=== PATIENT | female | born 1975 | race Caucasian/White ===

== ENCOUNTER 2017-03-27 07:19 | Emergency (ER) | payer OTHER ==
[2017-03-27 07:42] VITALS: BP 111/73
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
== END 2017-03-27 09:13 | disposition home or self-care (01) ==
LOC: UCEAST 07:19
DX: S20.20XA Contusion of thorax, unspecified, initial encounter (principal); X58.XXXA Exposure to other specified factors, initial encounter; Y93.89 Activity, other specified; Y92.9 Unspecified place or not applicable; F17.210 Nicotine dependence, cigarettes, uncomplicated
CPT/HCPCS: 99211; G0463

== ENCOUNTER 2018-03-01 10:57 | Emergency (ER) | payer SELFPAY ==
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
[2018-03-01] MEDS ORDERED: Ibuprofen ADULT LIQ* 600 MG/30 ML UDC PO ONE (11:16)
[2018-03-01] MEDS ORDERED: Ibuprofen PED LIQ 100 MG/5 ML UDC ONE (11:46)
[2018-03-01] MEDS ORDERED: Ibuprofen PED LIQ 100 MG/5 ML UDC PO ONE (11:52)
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
[2018-03-01 14:35] VITALS: BP 97/69
== END 2018-03-01 14:33 | disposition home or self-care (01) ==
LOC: ED 10:57
DX: R51 Headache (principal); S00.511A Abrasion of lip, initial encounter; F17.210 Nicotine dependence, cigarettes, uncomplicated; Y92.9 Unspecified place or not applicable; V49.9XXA Car occupant (driver) (passenger) injured in unspecified traffic accident, initial encounter
CPT/HCPCS: 70360; 70450; 72125; 72128; 72131; 99282; A9270-GY

== ENCOUNTER 2018-04-23 16:29 | Emergency (ER) | payer OTHER ==
[2018-04-23 17:02] VITALS: BP 103/62
--- NOTE | 2018-04-23 17:49 | UC ---
Lower Extremity/Ankle HPI - HPI Summary HPI Summary: Patient states has progressive pain that started in her right lateral hip that is now going down her leg. Patient states pain is worse with walking and direct palpation. Patient states she has not applied any ice or heat. No trauma or fall. Patient states the pain causes her to limp. Patient has not taken lsiu-are-vftoner medication. Patient denies paresthesias to her knee or foot. Patient denies color changes. Patient denies trauma. No history of similar but states she does have a history of "arthritis" The patient's medications reviewed this visit. - History of Current Complaint Chief Complaint: UCLowerExtremity Stated Complaint: PAIN DOWN FROM RIGHT HIP TO ANKLE Time Seen by Provider: 04/23/18 17:47 Hx Obtained From: Patient Hx Last Menstrual Period: 04/10/18 Onset/Duration: Gradual Onset Pain Intensity: 3 - Allergies/Home Medications Allergies/Adverse Reactions: Allergies Allergy/AdvReac Type Severity Reaction Status Date / Time No Known Allergies Allergy Verified 09/13/12 08:27 PMH/Surg Hx/FS Hx/Imm Hx Previously Healthy: Yes - Surgical History Surgical History: None Surgery Procedure, Year, and Place: Brain surgery(CRANIOTOMY) 2012 at [facility],. tubal ligation - Family History Known Family History: Positive: Hypertension - Social History Occupation: Unemployed Lives: With Family Alcohol Use: None Substance Use Type: None Smoking Status (MU): Heavy Every Day Tobacco Smoker Amount Used/How Often: 1/4 PPD Review of Systems Constitutional: Negative Musculoskeletal: Other: - right hip All Other Systems Reviewed And Are Negative: Yes Physical Exam - Summary Physical Exam Summary: Vital Signs Reviewed: Yes A+Ox3, no distress Eyes: Conjunctiva Clear, KATHRYN. EOM intact and full ENT: Hearing grossly normal TM x 2 clear, mmoist, uvula midline, no exudate, no erythema Neck: Positive: Supple Respiratory: Positive: No respiratory distress, No accessory muscle use + CTA throughout no w/r Cardiovascular: RRR nl s1, s2 no m/r CBT <2 sec Musculoskeletal + SLE, + flex/ext knee, ankle + TTP lateral aspect right hip with direct palp. Pain increases with SLE and internal rotation Neurological: Positive: Alert, + sensation throughout 2+ patellar, 2+ achilles without clonus Psychological: Positive: Normal Response To Family Skin: Positive: no rash, no ecchymosis Triage Information Reviewed: Yes Vital Signs: Initial Vital Signs Temp 97.0 F 04/23/18 16:56 Pulse 69 04/23/18 16:56 Resp 16 04/23/18 16:56 BP 103/62 04/23/18 16:56 Pulse Ox 99 04/23/18 16:56 Diagnostics - Radiology No standard instances Radiology Interpretation Completed By: Radiologist - Patient Name: KARIME ROQUE Medical Record#: [id number] Ordering Physician: Karen Holly MD Acct.#: [id number] : 1975 Age: 42 Sex: F Location: [facility] Exam Date: 04/23/181803 ADM Status: REG ER Order Information: HIP RIGHT 2 VIEWS AND PELVIS Accession Number: [id number] CPT: 05837 HISTORY: Right hip lateral pain, bursitis COMPARISONS: None VIEWS: 3, Frontal view of the pelvis with frontal and frog-leg views of the right hip FINDINGS: BONE DENSITY: Normal. BONES: There is no displaced fracture. JOINTS: There is no arthropathy. ALIGNMENT: There is no dislocation. SOFT TISSUES: Unremarkable. OTHER FINDINGS : None. IMPRESSION: NO ACUTE OSSEOUS INJURY. IF SYMPTOMS PERSIST, RECOMMEND REPEAT IMAGING. < Electronically signed by Axel Adame MD in OV> 04/23/181829 Dictated By: Axel Adame MD Dictated Date/Time: 04/23/181829 Transcribed Date/ Time: 04/23/181829 Copy to: CC:Karen Holly MD; Ana Carney NP Imaging - [facility] Imaging - [facility] Imaging - [facility] [address] [place] [address] ph [phone]) ph [phone]) ph ([phone]) 1 of 1 Lower Extremity Course/Dx - Course Course Of Treatment: pt with discomfort with direct palp over right lateral ankle Pain extends lateral aspect of leg. CSM intact. suspect burisitis. will imaging. motrin/apap. stretch. rest. pt referral - Differential Dx/Diagnosis Provider Diagnoses: right hip pain Discharge - Sign-Out/Discharge Documenting (check all that apply): Discharge/Admit/Transfer - Discharge Plan Condition: Stable Disposition: HOME Prescriptions: PredNISOLone LIQ 5MG/ML* 30 mg PO DAILY #10 [facility] [place] Patient Education Materials: Hip Bursitis (ED) Referrals: Ana Carney [Primary Care Provider] - Additional Instructions: - Take prednisone daily as prescribed - Okay to take Tylenol 650mg every 6 hours for pain. Take with food - apply heat to your right hip - slow, gentle stretching exercises - contact your doctor tomorrow to scheduled a follow-up appointment - rest as much as possible Contact your doctor or go to the emergency department for uncontrolled pain, fever, leg weakness, reddness or ANY other questions or concerns - Billing Disposition and Condition Condition: STABLE Disposition: HOME
--- NOTE | 2018-04-23 18:34 | RAD ---
HISTORY: Right hip lateral pain, bursitis COMPARISONS: None VIEWS: 3, Frontal view of the pelvis with frontal and frog-leg views of the right hip FINDINGS: BONE DENSITY: Normal. BONES: There is no displaced fracture. JOINTS: There is no arthropathy. ALIGNMENT: There is no dislocation. SOFT TISSUES: Unremarkable. OTHER FINDINGS: None. IMPRESSION: NO ACUTE OSSEOUS INJURY. IF SYMPTOMS PERSIST, RECOMMEND REPEAT IMAGING.
== END 2018-04-23 19:15 | disposition home or self-care (01) ==
LOC: UCEAST 16:29
DX: M25.551 Pain in right hip (principal); F17.210 Nicotine dependence, cigarettes, uncomplicated
CPT/HCPCS: 99212; G0463

== ENCOUNTER 2018-11-23 18:23 | Emergency (ER) | payer OTHER ==
[2018-11-23 18:34] VITALS: BP 111/71
--- NOTE | 2018-11-23 18:57 | UC ---
Throat Pain/Nasal Jaden HPI - HPI Summary HPI Summary: 43-year-old woman comes in with a chief complaint of cough chest congestion and fevers. Been having upper respiratory tract infection symptoms for approximately one week. Initially had more of a runny nose and sinus pressure now it's moved down into her chest. sHe is a smoker and she is producing sputum. She does not take any medications. - History of Current Complaint Chief Complaint: UCGeneralIllness Stated Complaint: URI Time Seen by Provider: 11/23/18 18:40 Hx Last Menstrual Period: [id number] Pain Intensity: 3 - Allergies/Home Medications Allergies/Adverse Reactions: Allergies Allergy/AdvReac Type Severity Reaction Status Date / Time No Known Allergies Allergy Verified 11/23/18 18:34 Home Medications: Home Medications Phenol/Glycerin [Chloraseptic Max Sore Thr] 1 spr MT Q6H 11/23/18 [History Confirmed 11/23/18] [id number] LIQ* [Robitussin*] 5 mg PO Q4H PRN 11/23/18 [History Confirmed 11/23] PMH/Surg Hx/FS Hx/Imm Hx Previously Healthy: Yes - Surgical History Surgical History: Yes Surgery Procedure, Year, and Place: Brain surgery(CRANIOTOMY) 2012 at [facility],. tubal ligation - Family History Known Family History: Positive: Hypertension - Social History Alcohol Use: None Substance Use Type: None Smoking Status (MU): Light Every Day Tobacco Smoker Amount Used/How Often: 1/ PPD Review of Systems All Other Systems Reviewed And Are Negative: Yes Constitutional: Positive: Fever Skin: Positive: Negative Eyes: Positive: Negative ENT: Positive: Sore Throat, Nasal Discharge, Sinus Congestion Respiratory: Positive: Cough, Other - see hpi Cardiovascular: Positive: Negative Gastrointestinal: Positive: Negative Motor: Positive: Negative Neurovascular: Positive: Negative Musculoskeletal: Positive: Negative Neurological: Positive: Negative Psychological: Positive: Negative Is Patient Immunocompromised?: No Physical Exam Triage Information Reviewed: Yes Appearance: No Pain Distress, Well-Nourished, Ill-Appearing - mild Vital Signs: Initial Vital Signs Temp 99.4 F 11/23/18 18:30 Pulse 73 11/23/18 18:30 Resp 16 11/23/18 18:30 BP 111/71 11/23/18 18:30 Pulse Ox 100 11/23/18 18:30 Vital Signs Reviewed: Yes Eye Exam: Normal Eyes: Positive: Conjunctiva Clear ENT: Positive: Nasal congestion, Nasal drainage, TMs normal Neck exam: Normal Neck: Positive: Supple Respiratory: Positive: Lungs clear, Normal breath sounds, No respiratory distress Cardiovascular: Positive: RRR Musculoskeletal Exam: Normal Musculoskeletal: Positive: Strength Intact, ROM Intact Neurological Exam: Normal Neurological: Positive: Alert, Muscle Tone Normal Psychological Exam: Normal Psychological: Positive: Normal Response To Family, Age Appropriate Behavior Skin Exam: Normal Throat Pain/Nasal Course/Dx - Course Course Of Treatment: DISCUSSED VIRAL VERSES BACTERIAL INFECTION AND THE ROLE OF ANTIBIOTICS. THE PATIENT WISHES TO BE ON ANTIBIOTIC AT THIS TIME. - Differential Dx/Diagnosis Provider Diagnosis: Bronchitis Discharge - Sign-Out/Discharge Documenting (check all that apply): Patient Departure All imaging exams completed and their final reports reviewed: No Studies - Discharge Plan Condition: Stable Disposition: HOME Prescriptions: Azithromycin 200/5 SUSP(NF) [Zithromax 200 mg/5 ml SUSP(NF)] 0 mg PO DAILY # 37.5 ml Patient Education Materials: Acute Bronchitis (ED) Referrals: Ana Carney [Primary Care Provider] - Additional Instructions: FOLLOW UP WITH YOUR DOCTOR IF NOT COMPLETELY IMPROVED. GET RECHECKED FOR ANY WORSENING OF YOUR CONDITION OR QUESTIONS OR CONCERNS. - Billing Disposition and Condition Condition: STABLE Disposition: Home
== END 2018-11-23 19:05 | disposition home or self-care (01) ==
LOC: UCEAST 18:23
DX: J40 Bronchitis, not specified as acute or chronic (principal); F17.210 Nicotine dependence, cigarettes, uncomplicated
CPT/HCPCS: 99212; G0463

== ENCOUNTER 2018-12-17 08:58 | Emergency (ER) | payer OTHER ==
[2018-12-17 09:16] VITALS: BP 126/81
--- NOTE | 2018-12-17 09:38 | UC ---
Respiratory Complaint HPI - History of Current Complaint Chief Complaint: UCChestPain Stated Complaint: RIB PAIN Time Seen by Provider: 12/17/18 09:35 Hx Last Menstrual Period: menapause Pain Intensity: 8 - Allergies/Home Medications Allergies/Adverse Reactions: Allergies Allergy/AdvReac Type Severity Reaction Status Date / Time No Known Allergies Allergy Verified 11/23/18 18:34 PMH/Surg Hx/FS Hx/Imm Hx - Surgical History Surgical History: Yes Surgery Procedure, Year, and Place: Brain surgery(CRANIOTOMY) [address] [facility]. tubal ligation - Family History Known Family History: Positive: Hypertension - Social History Alcohol Use: None Substance Use Type: None Smoking Status (MU): Light Every Day Tobacco Smoker Amount Used/How Often: 1/4 PPD Physical Exam Vital Signs: Initial Vital Signs Temp 99.3 F 12/17/18 09:07 Pulse 67 12/17/18 09:07 Resp 18 12/17/18 09:07 BP 126/81 12/17/18 09:07 Pulse Ox 100 12/17/18 09:07 Diagnostic Evaluation - Laboratory O2 Sat by Pulse Oximetry: 100 Discharge - Discharge Plan Referrals: Ana Carney [Primary Care Provider] -
--- NOTE | 2018-12-17 09:40 | UC ---
Respiratory Complaint HPI - HPI Summary HPI Summary: 43 yo female presents with LEFT rib pain for the last few days. She tells me that around 11/23 she was treated for bronchitis/PNA and has been doing a lot of coughing since that time. Has been coughing so much lately that she is concerned she may have broken a rib in her left side. Hurts to take deep breaths and with touch. She is still smoking daily. Denies fever, chills, SOB, cardiac chest pain, n/v. - History of Current Complaint Chief Complaint: UCChestPain Stated Complaint: RIB PAIN Time Seen by Provider: 12/17/18 09:35 Hx Obtained From: Patient Hx Last Menstrual Period: menapause Onset/Duration: Gradual Onset Severity Initially: Moderate Severity Currently: Severe Pain Intensity: 8 Pain Scale Used: 0-10 Numeric Character: Cough: Nonproductive - Allergies/Home Medications Allergies/Adverse Reactions: Allergies Allergy/AdvReac Type Severity Reaction Status Date / Time No Known Allergies Allergy Verified 11/23/18 18:34 PMH/Surg Hx/FS Hx/Imm Hx - Additional Past Medical History Additional PMH: None - Surgical History Surgical History: Yes Surgery Procedure, Year, and Place: Brain surgery(CRANIOTOMY) 2012 at [facility],. tubal ligation - Family History Known Family History: Positive: Hypertension - Social History Occupation: Employed Full-time Lives: With Family Alcohol Use: None Substance Use Type: None Smoking Status (MU): Light Every Day Tobacco Smoker Amount Used/How Often: 1/4 PPD Review of Systems All Other Systems Reviewed And Are Negative: Yes Constitutional: Positive: Negative Skin: Positive: Negative Eyes: Positive: Negative ENT: Positive: Negative Respiratory: Positive: Cough Cardiovascular: Positive: Negative Gastrointestinal: Positive: Negative Musculoskeletal: Positive: Other: - left rib pain Neurological: Positive: Negative Psychological: Positive: Negative Physical Exam - Summary Physical Exam Summary: GENERAL: NAD. WDWN. No pain distress. SKIN: No rashes, sores, lesions, or open wounds. HEENT: Head: AT/NC NECK: Supple. Nontender. No lymphadenopathy. CHEST: Distant breath sounds throughout. No r/r. No accessory muscle use. Breathing comfortably and in no distress. CV: RRR. Without m/r/g. Pulses intact. Cap refill <2seconds MSK: TTP overlying midaxillary left rib ~7th-8th. Pain worse with left arm movement and deep breaths. NEURO: Alert. PSYCH: Age appropriate behavior. Triage Information Reviewed: Yes Vital Signs: Initial Vital Signs Temp 99.3 F 12/17/18 09:07 Pulse 67 12/17/18 09:07 Resp 18 12/17/18 09:07 BP 126/81 12/17/18 09:07 Pulse Ox 100 12/17/18 09:07 Vital Signs Reviewed: Yes UC Diagnostic Evaluation - Laboratory O2 Sat by Pulse Oximetry: 100 Respiratory Course/Dx - Course Course Of Treatment: CXR: IMPRESSION: 1. SCOLIOSIS. 2. NO DISPLACED RIB FRACTURE OR PNEUMOTHORAX. IF THERE IS PERSISTENT CLINICAL CONCERN FOR. OSSEOUS PATHOLOGY OF THE RIBS, BONE SCANNING MAY BE MORE SENSITIVE. Suspect muscle strain due to coughing. Pt declined cough or pain medication at this time. Advised to apply heat/ice to the area and f/u with PCP if symptoms do not improve. - Differential Dx/Diagnosis Provider Diagnosis: Intercostal muscle strain Discharge - Sign-Out/Discharge Documenting (check all that apply): Patient Departure All imaging exams completed and their final reports reviewed: Yes - Discharge Plan Condition: Stable Disposition: HOME Patient Education Materials: Muscle Strain (DC) Referrals: Ana Carney [Primary Care Provider] - Additional Instructions: If you develop a fever, shortness of breath, chest pain, new or worsening symptoms - please call your PCP or go to the ED. - Billing Disposition and Condition Condition: STABLE Disposition: Home - Attestation Statements Provider Attestation: I was available for consult. This patient was seen by the EMM[facility]. The patient was not presented to, seen by, or examined by me. -Brett
== END 2018-12-17 10:20 | disposition home or self-care (01) ==
LOC: UCEAST 08:58
DX: S29.011A Strain of muscle and tendon of front wall of thorax, initial encounter (principal); X58.XXXA Exposure to other specified factors, initial encounter; Y92.9 Unspecified place or not applicable; M41.9 Scoliosis, unspecified; F17.200 Nicotine dependence, unspecified, uncomplicated
CPT/HCPCS: 99211; G0463

== ENCOUNTER 2019-03-14 09:12 | Emergency (ER) | payer OTHER ==
[2019-03-14 09:26] VITALS: BP 98/70
--- NOTE | 2019-03-14 09:42 | UC ---
Respiratory Complaint HPI - HPI Summary HPI Summary: 43-year-old woman comes in with a chief complaint of 3 days of upper respiratory tract infection symptoms. She's got a cough chest congestion. She is a smoker. Prescription pain in the left side of the chest when she coughs. Got some runny nose minimal sore throat. Feels like her right ear is clogged up. Tried to take some [id number] medications but then she threw them up. No complaint of abdominal pain. Fever yesterday. - History of Current Complaint Chief Complaint: UCRespiratory Stated Complaint: COUGH/SORE THROAT Time Seen by Provider: 03/14/19 09:30 Hx Last Menstrual Period: menapause Pain Intensity: 4 - Allergies/Home Medications Allergies/Adverse Reactions: Allergies Allergy/AdvReac Type Severity Reaction Status Date / Time No Known Allergies Allergy Verified 03/14/19 09:26 PMH/Surg Hx/FS Hx/Imm Hx Previously Healthy: Yes - Surgical History Surgical History: Yes Surgery Procedure, Year, and Place: Brain surgery(CRANIOTOMY) 2012 at [facility]. tubal ligation - Family History Known Family History: Positive: Hypertension - Social History Alcohol Use: None Substance Use Type: None Smoking Status (MU): Heavy Every Day Tobacco Smoker Amount Used/How Often: 1/ PPD Review of Systems All Other Systems Reviewed And Are Negative: Yes Constitutional: Positive: Fever Skin: Positive: Negative Eyes: Positive: Negative ENT: Positive: Sore Throat, Ear Ache, Nasal Discharge, Sinus Congestion Respiratory: Positive: Cough, Other - SEE HPI Cardiovascular: Positive: Chest Pain Gastrointestinal: Positive: Vomiting Motor: Positive: Negative Neurovascular: Positive: Negative Musculoskeletal: Positive: Negative Neurological: Positive: Negative Psychological: Positive: Negative Is Patient Immunocompromised?: No Physical Exam Triage Information Reviewed: Yes Appearance: No Pain Distress, Well-Nourished, Ill-Appearing - MILD Vital Signs: Initial Vital Signs Temp 99.7 F 03/14/19 09:21 Pulse 69 03/14/19 09:21 Resp 18 03/14/19 09:21 BP 98/70 03/14/19 09:21 Pulse Ox 97 03/14/19 09:21 Vital Signs Reviewed: Yes Eye Exam: Normal ENT: Positive: Pharyngeal erythema, Nasal congestion, Nasal drainage, TM dull - RT Neck: Positive: Supple Respiratory: Positive: Lungs clear, Normal breath sounds, No respiratory distress Cardiovascular: Positive: RRR Musculoskeletal Exam: Normal Musculoskeletal: Positive: Strength Intact, ROM Intact Neurological Exam: Normal Neurological: Positive: Alert, Muscle Tone Normal Psychological Exam: Normal Psychological: Positive: Age Appropriate Behavior Skin Exam: Normal Respiratory Course/Dx - Course Course Of Treatment: DISCUSSED VIRAL VERSES BACTERIAL INFECTION AND THE ROLE OF ANTIBIOTICS. THE PATIENT WISHES TO BE ON ANTIBIOTICS AT THIS TIME. - Differential Dx/Diagnosis Provider Diagnosis: Bronchitis, Vomiting Discharge - Sign-Out/Discharge Documenting (check all that apply): Patient Departure All imaging exams completed and their final reports reviewed: No Studies - Discharge Plan Condition: Stable Disposition: HOME Prescriptions: Azithromycin 200/5 SUSP(NF) [Zithromax 200 mg/5 ml SUSP(NF)] 0 mg PO DAILY # 37.5 ml Ondansetron ODT TAB* [Zofran 4 MG Odt TAB*] 4 mg PO Q6H PRN #10 tab.odt PRN Reason: Nausea Patient Education Materials: Acute Bronchitis (ED), Acute Nausea and Vomiting ( ED) Forms: *Work Release Referrals: Ana Carney [Primary Care Provider] - Additional Instructions: FOLLOW UP WITH YOUR DOCTOR IF NOT COMPLETELY IMPROVED. GET REEVALUATED SOONER IF YOUR CONDITION WORSENS OR ANY QUESTIONS OR CONCERNS. - Billing Disposition and Condition Condition: STABLE Disposition: Home
== END 2019-03-14 09:48 | disposition home or self-care (01) ==
LOC: UCEAST 09:12
DX: J40 Bronchitis, not specified as acute or chronic (principal); R11.10 Vomiting, unspecified; H93.8X1 Other specified disorders of right ear; F17.200 Nicotine dependence, unspecified, uncomplicated
CPT/HCPCS: 99212; G0463

== ENCOUNTER 2019-03-17 13:04 | Emergency (ER) | payer OTHER ==
[2019-03-17 13:16] VITALS: BP 100/72
--- NOTE | 2019-03-17 13:55 | UC ---
Respiratory Complaint HPI - HPI Summary HPI Summary: 43 yo female presents with continued dry cough. She tells me that she was here a few days ago and was dx'd with bronchitis and was prescribed azithromycin. She is still taking this, but says her cough is keeping her up at night and does not feel well enough to return to work. She is still smoking daily. Denies fever, chills, sinus symptoms, sore throat, SOB, chest pain. She is also requesting an x-ray today. - History of Current Complaint Chief Complaint: UCRespiratory Stated Complaint: COUGH CONGESTION Time Seen by Provider: 03/17/19 13:55 Hx Obtained From: Patient Hx Last Menstrual Period: February 07, 2019 Onset/Duration: Gradual Onset Severity Initially: Mild Severity Currently: Mild Pain Intensity: 4 Pain Scale Used: 0-10 Numeric Character: Cough: Nonproductive - Allergies/Home Medications Allergies/Adverse Reactions: Allergies Allergy/AdvReac Type Severity Reaction Status Date / Time No Known Allergies Allergy Verified 03/17/19 13:16 PMH/Surg Hx/FS Hx/Imm Hx - Additional Past Medical History Additional PMH: None Respiratory History: COPD, Asthma - Surgical History Surgical History: Yes Surgery Procedure, Year, and Place: Brain surgery(CRANIOTOMY) 2012 at [facility],. Tubal ligation - Family History Known Family History: Positive: Hypertension - Social History Lives: With Family Alcohol Use: None Substance Use Type: None Smoking Status (MU): Heavy Every Day Tobacco Smoker Amount Used/How Often: 1/4 PPD Review of Systems All Other Systems Reviewed And Are Negative: Yes Constitutional: Positive: Negative Skin: Positive: Negative Eyes: Positive: Negative ENT: Positive: Negative Respiratory: Positive: Cough Cardiovascular: Positive: Negative Gastrointestinal: Positive: Negative Neurovascular: Positive: Negative Neurological: Positive: Negative Psychological: Positive: Negative Physical Exam - Summary Physical Exam Summary: GENERAL: NAD. WDWN. No pain distress. SKIN: No rashes, sores, lesions, or open wounds. HEENT: Head: AT/NC Eyes: Conjunctiva clear without inflammation or discharge. Ears: Hearing grossly normal. TMs intact, no bulging, erythema, or edema. Nose: Nasal mucosa pink and moist. NTTP maxillary and frontal sinus. Throat: Posterior oropharynx without exudates, erythema, or tonsillar enlargement. Uvula midline. NECK: Supple. Nontender. No lymphadenopathy. CHEST: Mild wheezing throughout. No r/r. No accessory muscle use. Breathing comfortably and in no distress. CV: RRR. Without m/r/g. Pulses intact. Cap refill <2seconds NEURO: Alert. PSYCH: Age appropriate behavior. Triage Information Reviewed: Yes Vital Signs: Initial Vital Signs Temp 98.2 F 03/17/19 13:13 Pulse 76 03/17/19 13:13 Resp 18 03/17/19 13:13 BP 100/72 03/17/19 13:13 Pulse Ox 100 03/17/19 13:13 Vital Signs Reviewed: Yes Respiratory Course/Dx - Course Course Of Treatment: CXR: negative. Agree with previous dx and suspect bronchitis vs COPD exacerbation. Will have her continue azithromycin and will rx for prednisolone and delsym as pt can only tolerate liquid formulations of medications. She has an albuterol inhaler at home and advised to her continue using this. - Differential Dx/Diagnosis Provider Diagnosis: Bronchitis Discharge - Sign-Out/Discharge Documenting (check all that apply): Patient Departure All imaging exams completed and their final reports reviewed: Yes - Discharge Plan Condition: Stable Disposition: HOME Prescriptions: Dextromethorphan Polistirex [Delsym] 30 mg PO BID PRN #1 bottle PRN Reason: Cough PrednisoLONE 3 MG/ML ORAL.SOLU [PrednisoLONE 3 MG/ML 5 ml ORAL.SOLUTION*] 13 ml PO DAILY 5 Days #65 ml Patient Education Materials: Acute Bronchitis (ED) Forms: *Work Release Referrals: Ana Carney [Primary Care Provider] - Additional Instructions: If you develop a fever, shortness of breath, chest pain, new or worsening symptoms - please call your PCP or go to the ED. Your chest x-ray was normal 1) Continue your antibiotic and start the prednisolone in addition - Billing Disposition and Condition Condition: STABLE Disposition: Home
== END 2019-03-17 14:57 | disposition home or self-care (01) ==
LOC: UCEAST 13:04
DX: J40 Bronchitis, not specified as acute or chronic (principal); J44.9 Chronic obstructive pulmonary disease, unspecified; F17.200 Nicotine dependence, unspecified, uncomplicated
CPT/HCPCS: 71046; 99212; G0463

== ENCOUNTER 2020-01-11 14:15 | Emergency (ER) | payer SELFPAY ==
[2020-01-11 14:56] VITALS: BP 113/66
--- NOTE | 2020-01-11 15:23 | UC ---
General HPI - HPI Summary HPI Summary: ONSET OF LEFT ARM TINGLING FROM SHOULDER TO FINGERTIPS THIS MORNING 10 AM. STATES SHE FEELS SOME DISCOMFORT IN BOTH HER SHOULDERS AND HAS BEEN FEELING NAUSEATED SINCE THE ONSET OF THE SYMPTOMS. DENIES CHEST PAIN, SHORTNESS OF BREATH, SWEATS. PATIENT IS A HEAVY SMOKER AND REPORTS MULTIPLE FAMILY MEMBERS WITH HEART DISEASE IN THEIR 40S. - History of Current Complaint Chief Complaint: UCUpperExtremity Stated Complaint: TINGLEING IN LT ARM Time Seen by Provider: 01/11/20 15:06 Hx Obtained From: Patient Hx Last Menstrual Period: post Onset/Duration: Sudden Onset, Lasting Hours, Still Present Timing: Constant Onset Severity: Moderate Current Severity: Moderate Pain Intensity: 7 Associated Signs & Symptoms: Positive: Nausea. Negative: Back Pain, Chest Pain , Dizziness, Diaphoresis, Fever, Headache, SOB - Allergy/Home Medications Allergies/Adverse Reactions: Allergies Allergy/AdvReac Type Severity Reaction Status Date / Time No Known Allergies Allergy Verified 01/11/20 14:56 Home Medications: Home Medications NK [No Home Medications Reported] 01/11/20 [History Confirmed 01/11/20] PMH/Surg Hx/FS Hx/Imm Hx Previously Healthy: Yes - Surgical History Surgical History: Yes Surgery Procedure, Year, and Place: Brain surgery(CRANIOTOMY) 2012 at [facility]. Tubal ligation - Family History Known Family History: Positive: Cardiac Disease, Hypertension - Social History Alcohol Use: None Substance Use Type: None Smoking Status (MU): Heavy Every Day Tobacco Smoker Amount Used/How Often: 1/4 PPD Household Exposure Type: Cigarettes Review of Systems All Other Systems Reviewed And Are Negative: Yes Constitutional: Positive: Negative ENT: Positive: Negative Respiratory: Positive: Negative, Shortness Of Breath Gastrointestinal: Positive: Nausea Neurological/Mental Status: Positive: Paresthesia - LEFT ARM Physical Exam Triage Information Reviewed: Yes Appearance: Well-Appearing, No Pain Distress, Thin - APPEARS OLDER THAN STATED AGE Vital Signs: Initial Vital Signs Temp 98.6 F 01/11/20 14:51 Pulse 70 01/11/20 14:51 Resp 15 01/11/20 14:51 BP 113/66 01/11/20 14:51 Pulse Ox 99 01/11/20 14:51 Vital Signs Reviewed: Yes Eyes: Positive: Conjunctiva Clear ENT: Positive: Hearing grossly normal Neck: Positive: Supple Respiratory Exam: Normal Cardiovascular Exam: Normal Abdomen Description: Positive: Soft Musculoskeletal: Positive: No Edema Neurological: Positive: Alert, Other: - POSITIVE TINELS LEFT WRIST Psychological: Positive: Age Appropriate Behavior Skin: Negative: Rashes Diagnostics - EKG Cardiac Rate: NL - 64BPM Cardiac Rhythm: Sinus: Normal Ectopy: None ST Segment: Normal Course/Dx - Course Course Of Treatment: PATIENT PRESENTS WITH SUDDEN ONSET OF LEFT ARM TINGLING, BILATERAL SHOULDER PAIN AND NAUSEA AT 10 AM THIS MORNING WHILE AT WORK. PATIENT LIFTS AND MOVES HEAVY POTS AND PANS FOR WORK. THERE MAY BE AN ELEMENT OF CARPAL TUNNEL BUT GIVEN HER WHOLE PRESENTATION I FEEL SHE REQUIRES FURTHER EVALUATION IN THE ER TO RULE OUT ANY UNDERLYING CARDIAC CONDITION. EKG GROSSLY UNREMARKABLE. PATIENT IS A HEAVY SMOKER AND HAS A STRONG FAMILY HISTORY OF HEART DISEASE. - Diagnoses Provider Diagnosis: Paresthesia of left arm Discharge ED - Sign-Out/Discharge Documenting (check all that apply): Patient Departure All imaging exams completed and their final reports reviewed: No Studies - Discharge Plan Condition: Stable Disposition: TRANS HIGHER LVL OF CARE FAC Patient Education Materials: Paresthesia (ED) Referrals: Ana Carney [Primary Care Provider] - If Needed Additional Instructions: GIVEN YOUR LEFT ARM PARESTHESIAS, SHOULDER PAIN AND NAUSEA I FEEL YOU REQUIRE FURTHER EVALUATION AND A HIGHER LEVEL OF SERVICE THAN WHAT IS AVAILABLE IN THE URGENT CARE. GO DIRECTLY TO THE [facility] ER FROM HERE FOR FURTHER EVALUATION. YOU HAVE DECLINED TRANSFER TO THE ER BY AMBULANCE. BE ADVISED THAT BY NOT TRAVELING IN A MONITORED SETTING YOU COULD BE RISKING WORSENING OF YOUR CONDITION THAT COULD POSE A THREAT TO YOUR LIFE, HEALTH AND MEDICAL SAFETY. - Billing Disposition and Condition Condition: STABLE Disposition: Trans Higher Lvl of Care Fac
== END 2020-01-11 15:41 | disposition short-term general hospital (02) ==
LOC: UCEAST 14:15
DX: R20.2 Paresthesia of skin (principal); F17.210 Nicotine dependence, cigarettes, uncomplicated; R11.0 Nausea
CPT/HCPCS: 93005; 99213; G0463

== ENCOUNTER 2020-01-11 15:46 | Emergency (ER) | payer OTHER ==
[2020-01-11 17:14] LABS: ABS Basophils 0.1 10^3/ul (0-0.2); ABS Eosinophils 0.4 10^3/ul (0-0.6); ABS Lymphocytes 2.3 10^3/ul (1.0-4.8); ABS Monocytes 0.6 10^3/ul (0-0.8); ABS Neutrophils 4.8 10^3/ul (1.5-7.7); Eosinophil % 4.8 %; Hematocrit 39 % (35-47); Hemoglobin 13.6 g/dL (12.0-16.0); Lymphocyte % 28.4 %; Mean Corpuscular HGB Conc 35 g/dL (31-36); Mean Corpuscular Hemoglobin 32 pg (27-31); Mean Corpuscular Volume 92 fL (80-97); Mean Platelet Volume 8.2 fL (7.4-10.4); Nucleated Red Blood Cells % 0.1; Platelet Count 224 10^3/uL (150-450); Red Blood Count 4.26 10^6 /uL (3.70-4.87); Red Cell Distribution Width 13 % (10-15); White Blood Count 8.1 10^3/uL (3.5-10.8)
[2020-01-11] MEDS ORDERED: Ibuprofen ADULT LIQ* 600 MG/30 ML UDC PO ONE (17:40)
[2020-01-11 17:49] LABS: HCG Pregnancy < 0.60 mIU/mL
[2020-01-11 17:56] LABS: Albumin 4.3 g/dL (3.2-5.2); Anion Gap 7 mmol/L (2-11); CO2 Carbon Dioxide 24 mmol/L (22-32); Calcium 9.3 mg/dL (8.6-10.3); Chloride 107 mmol/L (101-111); Sodium 138 mmol/L (135-145)
[2020-01-11 18:02] LABS: ALT 7 U/L (7-52); AST 12 U/L (13-39); Albumin/Globulin Ratio 1.6 (1-3); Alkaline Phosphatase 54 U/L (34-104); BUN/Creatinine Ratio 15.5 (8-20); Blood Urea Nitrogen 13 mg/dL (6-24); EGFR African American 88.7 (>60); EGFR Non-African American 73.3 (>60); Globulin 2.7 g/dL (2-4); Glucose 95 mg/dL (70-100)
[2020-01-11 19:57] VITALS: BP 98/64
--- NOTE | 2020-01-11 20:04 | ED ---
HPI Chest Pain - HPI Summary HPI Summary: 44 y/o female presented to [facility] for shoulder and CP present since this morning. 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 She began experiencing CP in her left chest between 1500 and 1600 when en route to ED. Pt notes gas and mild nausea. CP lasted for several minutes, now resolved. She denies hx DVT/ PE. She has no cardiac hx or cardiac fhx. No recent stress test. No orthopnea or MAR. She is R handed but does use her L hand often at work. No - History of Current Complaint Chief Complaint: EDExtremityUpper Time Seen by Provider: 01/11/20 16:56 Hx Obtained From: Patient Hx Last Menstrual Period: post Onset/Duration: Started Hours Ago, Atraumatic, Resolved Timing: Lasting Hours Current Severity: None Pain Intensity: 0 Pain Scale Used: 0-10 Numeric Chest Pain Location: Left Anterior Aggravating Factor(s): Nothing Alleviating Factor(s): Nothing Associated Signs and Symptoms: Positive: Chest Pain, Numbness - left arm - Allergy/Home Medications Allergies/Adverse Reactions: Allergies Allergy/AdvReac Type Severity Reaction Status Date / Time No Known Allergies Allergy Verified 01/11/20 14:56 PMH/Surg Hx/FS Hx/Imm Hx Endocrine/Hematology History: Denies: Hx Diabetes, Hx Thyroid Disease Cardiovascular History: Denies: Hx Hypertension, Hx Pacemaker/ICD Respiratory History: Denies: Hx Asthma, Hx Chronic Obstructive Pulmonary Disease (COPD) GI History: Denies: Hx Ulcer History: Denies: Hx Renal Disease Sensory History: Denies: Hx Hearing Aid Neurological History: Reports: Other Neuro Impairments/Disorders - brain surg Psychiatric History: Denies: Hx Panic Disorder - Cancer History Cancer Type, 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 Tubal ligation Infectious Disease History: No Infectious Disease History: Reports: Hx of Known/Suspected MRSA Denies: Hx Clostridium Difficile, Hx Hepatitis, Hx Human Immunodeficiency Virus (HIV), Traveled Outside the [place] in Last 30 Days - Family History Known Family History: Positive: Cardiac Disease, Hypertension - Social History Alcohol Use: None Hx Substance Use: No Substance Use Type: Reports: None Hx Tobacco Use: Yes Smoking Status (MU): Light Every Day Tobacco Smoker Amount Used/How Often: 1/4 PPD Review of Systems Positive: Chest Pain Positive: Numbness - left arm All Other Systems Reviewed And Are Negative: Yes Physical Exam - Summary Physical Exam Summary: Constitutional: Well-developed, Well-nourished, Alert. (-) Distressed Skin: Warm, Dry HENT: Normocephalic; Atraumatic Eyes: Conjunctiva normal Neck: Musculoskeletal ROM normal neck. (-) JVD, (-) Stridor, (-) Nuchal rigidity Cardio: Rhythm regular, rate normal, Heart sounds normal; Intact distal pulses; Radial pulses are 2+ and symmetric. (-) Murmur Pulmonary/Chest wall: Effort normal. (-) Respiratory distress, (-) Wheezes, (-) Rales Abd: Soft, (-) tenderness, (-) Distension, (-) Guarding, (-) Rebound Musculoskeletal: (-) Edema, Tenderness of anterior left shoulder, Full rom of left wrist and hand. SILT Neuro: Alert, Oriented x3 Psych: Mood and affect Normal Triage Information Reviewed: Yes Vital Signs On Initial Exam: Initial Vitals Temp Pulse Resp BP Pulse Ox 97.9 F 69 19 136/76 100 01/11/20 15:47 01/11/20 15:47 01/11/20 15:47 01/11/20 15:47 01/11/20 15:47 Vital Signs Reviewed: Yes Procedures - Sedation Patient Received Moderate/Deep Sedation with Procedure: No Diagnostics - Vital Signs Vital Signs Temp Pulse Resp BP Pulse Ox 01/11/20 19:57 98.0 F 78 18 98/64 98 01/11/20 19:49 98/64 01/11/20 19:18 70 122/74 97 01/11/20 19:15 68 98 01/11/20 18:48 114/69 01/11/20 18:19 71 106/71 97 01/11/20 18:18 71 98 01/11/20 15:47 97.9 F 69 19 136/76 100 - Laboratory Lab Results: Lab Results 01/11/20 01/11/20 01/11/20 Range/Units 17:02 17:02 19:02 WBC 8.1 (3.5-10.8) 10^3/uL RBC 4.26 (3.70-4.87) 10^6 /uL Hgb 13.6 (12.0-16.0) g/dL Hct 39 (35-47) % MCV 92 (80-97) fL MCH 32 H (27-31) pg MCHC 35 (31-36) g/dL RDW 13 (10-15) % Plt Count 224 (150-450) 10^3/uL MPV 8.2 (7.4-10.4) fL Neut % (Auto) 58.8 % Lymph % (Auto) 28.4 % [place] % (Auto) 7.0 % Eos % (Auto) 4.8 % Baso % (Auto) 1.0 % Absolute Neuts (auto) 4.8 (1.5-7.7) 10^3/ul Absolute Lymphs (auto) 2.3 (1.0-4.8) 10^3/ul Absolute Monos (auto) 0.6 (0-0.8) 10^3/ul Absolute Eos (auto) 0.4 (0-0.6) 10^3/ul Absolute Basos (auto) 0.1 (0-0.2) 10^3/ul Absolute Nucleated RBC 0.0 10^3/ul Nucleated RBC % 0.1 Sodium 138 (135-145) mmol/L Potassium 4.0 (3.5-5.0) mmol/L Chloride 107 (101-111) mmol/L Carbon Dioxide 24 (22-32) mmol/L Anion Gap 7 (2-11) mmol/L BUN 13 (6-24) mg/dL Creatinine 0.84 (0.51-0.95) mg/dL Est GFR ( Amer) 88.7 (>60) Est GFR (Non-Af Amer) 73.3 (>60) BUN/Creatinine Ratio 15.5 (8-20) Glucose 95 (70-100) mg/dL Calcium 9.3 (8.6-10.3) mg/dL Total Bilirubin 0.30 (0.2-1.0) mg/dL AST 12 L (13-39) U/L ALT 7 (7-52) U/L Alkaline Phosphatase 54 (34-104) U/L Troponin I 0.00 0.00 (<0.03) ng/mL Total Protein 7.0 (6.4-8.9) g/dL Albumin 4.3 (3.2-5.2) g/dL Globulin 2.7 (2-4) g/dL Albumin/Globulin Ratio 1.6 (1-3) Beta HCG, Quant < 0.60 mIU/mL Result Diagrams: 01/11/20 17:02 01/11/20 17:02 Lab Statement: Any lab studies that have been ordered have been reviewed, and results considered in the medical decision making process. - Radiology cxr Radiology Interpretation Completed By: ED Physician Summary of Radiographic Findings: No acute abnormalities. This xray was reviewed and interpreted by the ED physician pending official read. Re-Evaluation - Re-Evaluation First Eval Re-Evaluation Time: 19:40 Change: Improved - second trop neg, given motrin for pain. Feeling better. DC to home Chest Pain Course/Dx - Course Course Of Treatment: 44 y/o F p/w L shoulder/arm pain as well as CP. - regarding arm pain, likely MSK in nature, has some tenderness at AC joint with radiating pain down arm and intermittent paresthesias. No neck pain. SILT. Strength 5/5 in wrist/hand and shoulder. - regarding CP, likely atypical CP. EKG without evidence of acute ischemia, troponin negative 2. Heart score 2, low risk. chest x-ray without pneumonia, pneumothorax. Does not describe tearing chest pain typical of dissection. - Diagnoses Provider Diagnoses: Chest pain, Shoulder pain Discharge ED - Sign-Out/Discharge Documenting (check all that apply): Patient Departure - dc - Discharge Plan Condition: Stable Disposition: HOME Prescriptions: Cyclobenzaprine TAB* [Flexeril 10 MG TAB*] 10 mg PO TID PRN 4 Days #12 tab PRN Reason: Pain - Moderate Ibuprofen TAB* [Motrin TAB* 800 MG] 800 mg PO TID PRN 10 Days #30 tab PRN Reason: Pain - Moderate Forms: *Work Release Referrals: [facility] [Outside] Additional Instructions: You were seen in the emergency department for chest and shoulder pain. Your EKG (heart tracing), labs and chest x-ray did not show any cause for pain. Important that you follow up with you primary care doctor in the next 1-2 days to help schedule an outpatient stress test. Reguarding or shoulder pain, you can take Motrin and Flexeril as needed for pain. Please return to the emergency department for continued chest pain, trouble breathing, passing out, or if you're concerned. - Billing Disposition and Condition Condition: STABLE Disposition: Home - Attestation Statements Document Initiated by Scribe: Yes Documenting Scribe: Misael Lilly Provider For Whom Scribe is Documenting (Include Credential): Gerald Jones Scribe Attestation: IMisael, scribed for [place]n [place] on 01/12/20 at 1602. Scribe Documentation Reviewed: Yes Provider Attestation: The documentation as recorded by the Misael giraldo accurately reflects the service I personally performed and the decisions made by Gerald hernandez Status of Scribe Document: Viewed
== END 2020-01-11 19:57 | disposition home or self-care (01) ==
LOC: ED 15:46
DX: M25.512 Pain in left shoulder (principal); R07.9 Chest pain, unspecified; F17.200 Nicotine dependence, unspecified, uncomplicated; Z85.841 Personal history of malignant neoplasm of brain
CPT/HCPCS: 36415; 71046; 80053; 84484; 84702; 85025; 93005; 99282; A9270-GY

== ENCOUNTER 2020-03-08 21:28 | Emergency (ER) | payer SELFPAY ==
--- OUTSIDE RECORDS SUMMARY | 2020-03-08 21:40 | XMS REPORT | Continuity of Care Document ---
:1975 External Reference #:[id number] Author Name Cheyanne Niño Care Team Providers Name Role Phone Orlando Orlando MD - Neurology Care Team Information Speech Language Pathologist Prn Amanda North NP - Family Care Team Information Speech Language Pathologist Prn [phone] Problems Active Problems Provider Date Colloid cyst of third ventricle Orlando Orlando M.D. Onset: 11/03/2014 Social History Type Date Description Comments Sex Unknown ETOH Use Denies alcohol use Tobacco Use Start: Unknown Patient is a current smoker, smokes every day Tobacco Use Start: Unknown Light tobacco smoker (10 or fewer cigarettes/day) Allergies, Adverse Reactions, Alerts Description No Known Drug Allergies Medications Active Medications SIG Qnty Indications Ordering Provider Date Valproic Acid 5 ml bid 300ml G43.009 Orlando Orlando M.D. 02/09/2017 250mg/5ML Solution Immunizations Description No Information Available Vital Signs Date Vital Result Comment 02/06/2017 10:38am Height 58.5 inches 4'10.50" Weight 94.00 lb Heart Rate 60 /min BP Systolic Sitting 94 mmHg BP Diastolic Sitting 66 mmHg Respiratory Rate 14 /min BMI (Body Mass Index) 19.3 kg/m2 01/09/2017 10:13am Height 58.5 inches 4'10.50" Weight 94.00 lb Heart Rate 76 /min BP Systolic Sitting 98 mmHg BP Diastolic Sitting 60 mmHg Respiratory Rate 14 /min BMI (Body Mass Index) 19.3 kg/m2 Results Description No Information Available Procedures Description No Information Available Medical Devices Description No Information Available Encounters Description No Information Available Assessments Description No Information Available Plan of Treatment 02/06/2017 - Orlando Orlando M.D.G43.009 Migraine w/o aura, not intractable, w /o status migrainosusNew Medication:Divalproex Sodium ER 500 mg - 1 by mouth every night at bedtimeFollow up:3 monthsRecommendations:stop all caffeine Functional Status Description No Information Available Mental Status Description No Information Available Referrals Description No Information Available
--- NOTE | 2020-03-08 21:44 | ED ---
Laceration/Wound HPI - HPI Summary HPI Summary: Patient is a 44 y/o F presenting to [facility] with a laceration to her left fifth finger that she sustained around one hour ago this evening while she was at work. Patient states that she was pushing a cart when she ran into an object; the cart subsequently bounced back and struck her finger, producing the laceration. Patient arrives to ED with this finger wrapped in gauze. She states that her last tetanus shot was within the past year. Patient is right-handed. No daily medications reported. PSHx of brain surgery 8-9 years ago noted. Home medications and allergies are reviewed. No fever as vitals show temp of 98.3 F. Home Medications Medication Instructions Recorded Confirmed Type Cyclobenzaprine TAB* [Flexeril 10 10 mg PO TID PRN 4 Days #12 tab 01/11/20 Rx MG TAB*] Ibuprofen TAB* [Motrin TAB* 800 MG] 800 mg PO TID PRN 10 Days #30 tab 01/11/20 Rx - History of Current Complaint Stated Complaint: INJURY TO LFT PINKY FINGER PER PT Hx Obtained From: Patient Hx Last Menstrual Period: post Mechanism of Injury: Sharp/Blunt Trauma Onset/Duration: Lasting Hours, Still Present Current Severity: Severe Pain Intensity: 10 Pain Scale Used: 0-10 Numeric Associated Signs & Symptoms: Negative - Allergy/Home Medications Allergies/Adverse Reactions: Allergies Allergy/AdvReac Type Severity Reaction Status Date / Time No Known Allergies Allergy Verified 03/08/20 21:31 Home Medications: Home Medications Ibuprofen TAB* [Motrin TAB* 800 MG] 800 mg PO TID PRN 10 Days #30 tab 01/11/20 [ Rx Confirmed 03/08/20] PMH/Surg Hx/FS Hx/Imm Hx Endocrine/Hematology History: Denies: Hx Diabetes, Hx Thyroid Disease Cardiovascular History: Denies: Hx Hypertension, Hx Pacemaker/ICD Respiratory History: Denies: Hx Asthma, Hx Chronic Obstructive Pulmonary Disease (COPD) GI History: Denies: Hx Ulcer History: Denies: Hx Renal Disease Sensory History: Denies: Hx Hearing Aid Neurological History: Reports: Other Neuro Impairments/Disorders - brain surg Psychiatric History: Denies: Hx Panic Disorder - Cancer History Cancer Type, 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 Tubal ligation Infectious Disease History: Yes Infectious Disease History: Reports: Hx of Known/Suspected MRSA Denies: Hx Clostridium Difficile, Hx Hepatitis, Hx Human Immunodeficiency Virus (HIV), Traveled Outside the [place] in Last 30 Days - Family History Known Family History: Positive: Cardiac Disease, Hypertension - Social History Alcohol Use: None Hx Substance Use: No Substance Use Type: Reports: None Hx Tobacco Use: Yes Smoking Status (MU): Light Every Day Tobacco Smoker Amount Used/How Often: / PPD Review of Systems Negative: Fever - No fever as vitals show temp of 98.3 F. Positive: Other - laceration to fifth finger of left hand All Other Systems Reviewed And Are Negative: Yes Physical Exam - Summary Physical Exam Summary: General: Well appearing, no distress HEENT: PERRL Cardiovascular: Skin is well perfused Pulmonary: No respiratory distress, no tachypnea Abdomen: Non-distended Skin: Warm, pink, dry; 1 cm laceration to the distal aspect of the fifth digit of the left hand. MSK: No edema, SILT to L pinky. Able to flex/ext DIP joint. Nail intact Psych: Normal affect Neuro: A&Ox3 Triage Information Reviewed: Yes Vital Signs On Initial Exam: Initial Vitals Temp Pulse Resp BP Pulse Ox 98.3 F 78 15 119/84 100 03/08/20 21:29 03/08/20 21:29 03/08/20 21:29 03/08/20 21:29 03/08/20 21:29 Vital Signs Reviewed: Yes Procedures - Sedation Patient Received Moderate/Deep Sedation with Procedure: No - Laceration/Wound Repair LEFT FIFTH FINGER Location: Other - LEFT FIFTH FINGER Anesthesia: 1.0%, Lido - 2 cc Irrigated w/ Saline (ccs): 500 Laceration/Wound Explored: clean Closure: Single Layer Suture Type: Prolene - 5-0 Number of Sutures: 2 Diagnostics - Vital Signs Vital Signs Temp Pulse Resp BP Pulse Ox 03/08/20 21:29 98.3 F 78 15 119/84 100 - Laboratory Lab Statement: Any lab studies that have been ordered have been reviewed, and results considered in the medical decision making process. Laceration Repair Course/Dx - Course Course Of Treatment: 44 y/o F p/w L pink laceration. - cleaned, repaired. UTD tetanus - Clinical Impression Provider Diagnoses: Laceration of left little finger Discharge ED - Sign-Out/Discharge Documenting (check all that apply): Patient Departure - Discharge Plan Condition: Stable Disposition: HOME Patient Education Materials: Care For Your Stitches (ED) Referrals: [facility] [Outside] Additional Instructions: You received sutures (stitches) today. These need to be removed in10 days. Please keep the area dry and clean. Return to the emergency department or seek medical attention for drainage, redness to the area, increased pain around the laceration. Once the wound is healed, you can apply sunscreen to help with scar prevention. - Billing Disposition and Condition Condition: STABLE Disposition: Home - Attestation Statements Document Initiated by Dimitri: Yes Documenting Scribe: CHERIE MENDEZ Provider For Whom Dimitri is Documenting (Include Credential): SUAD VERGARA MD Scribe Attestation: ICHERIE, scribed for SUAD VERGARA MD on 03/09/20 at 0035. Scribe Documentation Reviewed: Yes Provider Attestation: The documentation as recorded by the CHERIE giraldo accurately reflects the service I personally performed and the decisions made by , SUAD VERGARA MD Status of Scribe Document: Viewed
[2020-03-08] MEDS ORDERED: Acetaminophen ADULT LIQ* 650 MG/20.3 ML UDC PO ONE (22:07)
[2020-03-08 22:15] VITALS: BP 118/70
== END 2020-03-08 22:14 | disposition home or self-care (01) ==
LOC: ED 21:28
DX: S61.217A Laceration without foreign body of left little finger without damage to nail, initial encounter (principal); W22.8XXA Striking against or struck by other objects, initial encounter; Y92.9 Unspecified place or not applicable; Z98.51 Tubal ligation status; Z86.011 Personal history of benign neoplasm of the brain; Z86.14 Personal history of Methicillin resistant Staphylococcus aureus infection; F17.210 Nicotine dependence, cigarettes, uncomplicated
CPT/HCPCS: 12001; 99282; A9270-GY